=== PATIENT | female | born 1975 | race Caucasian/White ===

== ENCOUNTER 2018-01-13 19:06 | Emergency (ER) | payer MEDICAID ==
[2018-01-13] MEDS ORDERED: Pantoprazole 40 mg EC Tab PO STA (20:30)
[2018-01-13] MEDS ORDERED: Sodium Chloride 0.9% 1,000 ML IV ONE (20:31)
--- NOTE | 2018-01-13 20:34 | ED Physician Chart ---
ED Chief Complaint/HPI - Patient Information Date Seen:: 01/13/18 Time Seen:: 20:20 Chief Complaint:: UPPER ABD PAINS History of Present Illness:: 42 YR OLD FEMALE WITH UPER ABD PAINS FOR 8 WKS OFF AND ON Allergies:: Allergies Allergy/AdvReac Type Severity Reaction Status Date / Time Penicillins Allergy Verified 01/13/18 20:06 Vitals:: Vital Signs - 8 hr 01/13/18 19:30 Temp 98.0 F HR 87 RR 18 BP 129/58 O2 Sat % 100 ED Review of Systems - Review of Systems General/Constitutional: No fever Skin: No skin lesions Head: No headache Eyes: No loss of vision ENT: No earache Neck: No neck pain Cardio Vascular: No chest pain Pulmonary: No SOB GI: Nausea, Vomiting, Pain G/U: No dysuria Reel Slitter: No vaginal discharge Musculoskeletal: No bone or joint pain Endocrine: No polyuria Psychiatric: No depression Hematopoietic: No bruising Allergic/Immuno: No urticaria Neurological: No syncope Family Medical History - Family Member Mother History Unknown: Yes ED Septic Shock - . Is Septic Shock (SBP<90, OR Lactate>4 mmol\L) present?: No - <6hrs of presentation: Vital Signs: Vital Signs - 8 hr 01/13/18 19:30 Temp 98.0 F HR 87 RR 18 BP 129/58 O2 Sat % 100 ED Reassessment (Disposition) - Reassessment Reassessment:: ABD PAIN - Diagnosis Diagnosis:: ABD PAIN - Aftercare/Follow up Instructions Aftercare/Follow-Up Instructions:: Counseled pt regarding lab results/diagnosis & need follow up - Patient Disposition Discharge/Transfer:: Home Condition at Disposition:: Stable
[2018-01-13] MEDS ORDERED: Pantoprazole 40 mg EC Tab PO ONE (20:39)
[2018-01-13 21:05] LABS: URINE SOURCE CLEAN C
[2018-01-13 21:05] LABS: % BASOPHILS 0.2 % (0.0-2.0); % EOSINOPHILS 3.6 % (0.0-5.0); % LYMPHOCYTES 16.5 % (20.0-50.0); % MONOCYTES 5.4 % (2.0-10.0); % NEUTROPHILS 74.3 % (40.0-80.0); EOSINOPHILE ABSOLUTE 0.3 Th/cmm (0.1-0.4); HEMATOCRIT 36.4 % (41.0-60); HEMOGLOBIN 12.1 gm/dL (12-16); LYMPHOCYTE ABSOLUTE 1.5 Th/cmm (1.5-3.0); MEAN CELL VOLUME 85.9 fl (81-100); MEAN CORPUSCULAR HEMOGLOBIN 28.6 pg (27.0-31.0); MEAN CORPUSCULAR HGB CONC 33.3 pg (28.0-36.0); MEAN PLATELET VOLUME 8.2 fl; MONOCYTE ABSOLUTE 0.5 Th/cmm (0.3-1.0); NEUTROPHILE ABSOLUTE 6.7 Th/cmm (1.8-8.0); PLATELET COUNT 227 Th/cmm (150-400); RED BLOOD COUNT 4.24 Mil/cmm (3.80-5.10)
[2018-01-13 21:07] LABS: URINE BILIRUBIN NEGATIVE (NEGATIVE); URINE BLOOD NEGATIVE (NEGATIVE); URINE GLUCOSE (UA) NEGATIVE (NEGATIVE); URINE KETONE NEGATIVE (NEGATIVE); URINE LEUKOCYTE ESTERASE NEGATIVE (NEGATIVE); URINE NITRATE NEGATIVE (NEGATIVE); URINE PROTEIN NEGATIVE (NEGATIVE); URINE UROBILINOGEN 0.2 E.U./dL (0.2 - 1.0)
[2018-01-13 21:09] LABS: URINE CLARITY CLEAR (CLEAR); URINE COLOR YELLOW; URINE MICROSCOPIC INDICATED? YES
[2018-01-13 21:11] LABS: URINE BACTERIA FEW /hpf (NONE SEEN); URINE EPITHELIAL CELLS MODERATE /lpf (FEW); URINE RBC 0-2 /hpf (0-5); URINE YEAST FEW /hpf (NONE SEEN)
[2018-01-13 21:21] LABS: ALB/GLOB RATIO 1.3 (1.0-1.8); ALKALINE PHOSPHATASE 66 U/L (34-104); ANION GAP 11.1 (7.0-16.0); BILIRUBIN,TOTAL 0.3 mg/dL (0.3-1.0); BUN - UREA NITROGEN 13 mg/dL (7-25); CARBON DIOXIDE 23.7 mEq/L (21.0-31.0); CHLORIDE 106 mEq/L (98-107); CREATININE - SERUM 0.6 mg/dL (0.6-1.2); GFR AFRICAN-AMERICAN > 60.0 ml/min (>90); GFR NON AFRICAN-AMERICAN > 60.0 ml/min; GLUCOSE 124 mg/dL (70-105); POTASSIUM SERUM 3.8 mEq/L (3.5-5.1); SGOT 19 U/L (13-39); SGPT/ALT 19 U/L (7-52); SODIUM SERUM 137 mEq/L (136-145)
--- NOTE | 2018-01-14 09:13 | Diagnostic Imaging Report ---
Ultrasound abdomen HISTORY: Abdominal pain, provided history of cholecystectomy COMPARISON: Pelvic ultrasound the same day Technique: Sonography of the abdomen was performed in multiple planes. FINDINGS: Exam is limited due to body habitus and bowel gas. The liver demonstrates increased echogenicity . The liver margins are not well-defined limited assessment for focal lesions.. The liver measures 16 cm. Patient is status post cholecystectomy. The common bile duct measures 7 mm. Evaluation of the pancreas is limited due to bowel gas. The right kidney measures 10.3 x 3.7 cm. No evidence of focal lesions or hydronephrosis. The left kidney measures 12.1 x 5.7 cm. No evidence of focal lesions or hydronephrosis. The spleen 9.7. IMPRESSION: Nonvisualization of the gallbladder compatible with provided surgical history. Borderline prominent liver with increased echogenicity which may be due to underlying fatty infiltration. No evidence of hydronephrosis.
--- NOTE | 2018-01-14 09:19 | Diagnostic Imaging Report ---
Ultrasound pelvis HISTORY: Heavy menstrual cycle, pain LMP 01/04/2018, beta-hCG negative COMPARISON: None Technique: Longitudinal and transverse sonographic sector images of the pelvis were obtained transabdominally and transvaginally. FINDINGS: Exam is limited due to body habitus. The uterus measures 7.7 x 5.1 x 6.2 cm. The uterus is appears retroverted. Endometrial echo complex measures 1.4 cm and demonstrates vascularity. The right ovary measures 3.3 x 1.9 cm demonstrating a dominant follicular cyst measuring 1.8 cm. The left ovary measures 2.9 x 1.4 cm demonstrating multiple small ovarian follicular cysts. No free fluid in the pelvis. IMPRESSION: Thickened, vascular heterogeneous endometrial complex measuring up to 1.4 cm. Please correlate clinically. Bilateral ovarian follicular cystic changes. No evidence of free fluid in the pelvis.
== END 2018-01-13 23:19 | disposition home or self-care (01) ==
LOC: ER 19:06
DX: R10.10 Upper abdominal pain, unspecified (principal); R11.2 Nausea with vomiting, unspecified; Z88.0 Allergy status to penicillin
CPT/HCPCS: 99284; 76700; 76856; 76830; 36415; 85025; 81001; 80053; 87040 ×2; Q0162; J7030; Z7502; Z7610